=== PATIENT | female | born 1930 | race Caucasian/White ===

== ENCOUNTER 2017-01-16 11:53 | Emergency (ER) | payer MEDICARE, BC, OTHER ==
[~2017-01-16] VITALS: Ht 152.4 cm; Wt 50.9 kg
[~2017-01-16 11:53] MED LIST: ACLOVATE OINT 015 G1 TP; ASPI325T6 PO; ASPIRIN 32325 MG/TAB PO; ASPIRIN 81M81 MG/TA2 PO; CALCIUM CITRAT200 MG PO; CARAFATE 1GM1 G PO; CLEOCIN HCL300 MG PO; GLUCOSAMINE & C1 CA1 PO; GLUCOSAMINE PO; IBUPROFEN 200200 MG PO; IRON325 MG PO; LEVAQUIN 750MG750 M1 PO; MOTRIN 200200 MG/TAB PO; MULTIPLE VITAMI1 TAB PO; MVI PO; NEXIUM 40MG40 MG PO; NIASPAN500 MG PO; PATADAY 2.5 ML2.5 ML OU; PREMARIN .3MG0.3 MG PO; PRILOSEC; SYNTHROID0.05 MG/TA PO; TAMBOCOR50 MG PO; TYLENOL 325MG325 MG PO; VICODIN 5/5001 UDTAB PO; VIT B12; VITAMIN B-1000 MCG/T PO; VITAMIN D3400 IU PO; [UNRECOGNIZED DRUG - OTHER] TP; aclovate; aclovate TOP; glucosamine; levoxyl
[2017-01-16 11:55] VITALS: TEMP 97.7
[2017-01-16] MEDS ORDERED: CLEOCIN HCL300 MG PO (12:31)
[2017-01-16] MEDS ORDERED: GLUCOSAMINE 1000 PO (12:33)
[2017-01-16 12:35] LABS: BASO % 0.6 % (0.0-2.0); EOS % 0.9 % (0-4.0); GRAN # 2.3 (1.4-6.5); GRAN % 49.3 % (42.2-75.2); LYMPH % 43.2 % (20.0-51.0); MEAN CELL VOLUME 84 fl (80.0-100.0); MEAN CORPUSCULAR HGB CONC 30 g/dl (33.0-37.0); MONO # 0.3 (0.1-0.6); MONO % 5.8 % (1.7-9.3); PLATELET COUNT 157 K/mm3 (130-400); RED BLOOD COUNT 3.53 M/mm3 (4.10-5.30); REDCELL DISTRIBUTION WIDTH-CV 14.6 % (11.5-14.5); WHITE BLOOD COUNT 4.7 K/mm3 (4.8-10.8)
[2017-01-16 12:36] LABS: HEMATOCRIT 29.7 % (37.0-47.0); HEMOGLOBIN 8.9 g/dl (12.5-16.0); MEAN CORPUSCULAR HEMOGLOBIN 25 pg (27.0-31.0)
[2017-01-16] MEDS ORDERED: FLOVENT DI50 MCG/Act IH (12:36)
[2017-01-16 12:52] LABS: ADJUSTED CALCIUM 9.2 mg/dL (8.4-10.2); ALBUMIN 3.8 gm/dL (3.5-5.0); BILIRUBIN,TOTAL 0.4 mg/dL (0.0-1.0); CREATININE, serum 0.84 mg/dL (0.52-1.25); POTASSIUM 4.7 mmol/L (3.4-5.0); TOTAL PROTEIN 5.6 gm/dL (6.4-8.2)
[2017-01-16 13:32] LABS: PH 5 (5-8); SQUAMOUS EPITHELIAL 0-2 /hpf; URINE APPEARANCE Clear; URINE BACTERIA Rare /hpf; URINE BILIRUBIN Negative (NEGATIVE); URINE BLOOD 1+ (NEGATIVE); URINE COLOR Straw; URINE GLUCOSE Negative (NEGATIVE); URINE KETONE Negative (NEGATIVE); URINE RBC 0-2 /hpf; URINE UROBILINOGEN Negative (NEGATIVE); URINE WBC 0-2 /hpf
[2017-01-16 15:55] VITALS: BP 162/66; PULSE 71
== END 2017-01-16 15:00 | disposition home or self-care (01) ==
LOC: COL.ER 11:53
PROVIDERS: Emergency Medicine
DX: E87.1 Hypo-osmolality and hyponatremia (principal); D64.9 Anemia, unspecified; L03.116 Cellulitis of left lower limb; I48.91 Unspecified atrial fibrillation; I10 Essential (primary) hypertension; Z85.72 Personal history of non-Hodgkin lymphomas
CPT/HCPCS: J7030

== ENCOUNTER 2018-06-30 07:50 | Emergency (ER) | payer MEDICARE, BC, OTHER ==
[~2018-06-30] VITALS: Ht 152.4 cm; Wt 49.1 kg
[~2018-06-30 07:50] MED LIST changes: +FLOVENT DI50 MCG/Act IH; +GLUCOSAMINE 1000 PO
[2018-06-30 08:00] VITALS: TEMP 98.4
[2018-06-30 08:06] LABS: HEMATOCRIT 45.3 % (37.0-47.0); HEMOGLOBIN 15.1 g/dl (12.5-16.0); MEAN CELL VOLUME 96 fl (80.0-100.0); MEAN CORPUSCULAR HEMOGLOBIN 32 pg (27.0-31.0); MEAN CORPUSCULAR HGB CONC 33 g/dl (33.0-37.0); MEAN PLATELET VOLUME 10.6 fl (7.4-10.4); PLATELET COUNT 104 K/mm3 (130-400); RED BLOOD COUNT 4.71 M/mm3 (4.10-5.30); REDCELL DISTRIBUTION WIDTH-CV 13.4 % (11.5-14.5)
[2018-06-30 08:14] LABS: PROTHROMBIN TIME 10.8 SECONDS (9.7-12.8)
[2018-06-30 08:16] LABS: ALANINE AMINOTRANSFERASE 36 U/L (9-52); ALBUMIN 4.3 gm/dL (3.5-5.0); ALKALINE PHOSPHATASE 85 U/L (50-136); ANION GAP 5 mmol/L (7-16); AST,SGOT 32 U/L (15-37); BILIRUBIN,TOTAL 0.8 mg/dL (0.0-1.0); BLOOD UREA NITROGEN 19 mg/dL (7-17); CALCIUM 9.6 mg/dL (8.4-10.2); CARBON DIOXIDE 28 mmol/L (22-30); CHLORIDE 105 mmol/L (98-107); CREATININE, serum 0.73 mg/dL (0.52-1.25); GLUCOSE 88 mg/dL (74-106); POTASSIUM 4.3 mmol/L (3.4-5.0); SODIUM 138 mmol/L (137-145); TOTAL PROTEIN 6.2 gm/dL (6.4-8.2)
[2018-06-30 08:17] LABS: PARTIAL THROMBOPLASTIN TIME 32.3 SECONDS (26.0-37.0)
[2018-06-30 08:28] LABS: TROPONIN-I < 0.012 ng/mL (0.000-0.034)
[2018-06-30 09:09] VITALS: BP 136/64; PULSE 68
[2018-06-30 09:18] LABS: BAND 2 % (0-10); NEUTROPHILS 29 % (42.0-75.2); PLATELET ESTIMATE DECREASED (NORMAL)
[2018-06-30 09:22] LABS: LYMPHOCYTE 69 % (20.0-51.0)
[2018-07-01 08:04] LABS: PATHOLOGY DIFF REVIEW OK +
== END 2018-06-30 09:10 | disposition home or self-care (01) ==
LOC: COL.ER 07:50
PROVIDERS: Family Medicine
DX: I48.92 Unspecified atrial flutter (principal); I10 Essential (primary) hypertension; I48.91 Unspecified atrial fibrillation; Z79.82 Long term (current) use of aspirin

== ENCOUNTER 2018-10-15 08:01 | Emergency (ER) | payer MEDICARE, BC, OTHER ==
[~2018-10-15] VITALS: Ht 152.4 cm; Wt 48.2 kg
[~2018-10-15 08:01] MED LIST changes: +CRANBERRY500 M3 PO; +FERRO-TIME325 MG PO; +FLONASE NASAL S16 GM NS; +FLOVENT 44MCG I13 GM IH; +MOTRIN 400400 MG/TAB PO; +MUCINEX 60600 MG/TA1 PO; +VANTIN 200200 MG/TAB PO; +VITAMIN D3400 I1 PO; -VITAMIN D3400 IU PO
[2018-10-15 08:04] VITALS: TEMP 98.2
[2018-10-15 08:23] LABS: HEMOGLOBIN 14.4 g/dl (12.5-16.0); MEAN CELL VOLUME 99 fl (80.0-100.0); MEAN CORPUSCULAR HEMOGLOBIN 32 pg (27.0-31.0); MEAN CORPUSCULAR HGB CONC 33 g/dl (33.0-37.0); MEAN PLATELET VOLUME 10.6 fl (7.4-10.4); PLATELET COUNT 109 K/mm3 (130-400); RED BLOOD COUNT 4.46 M/mm3 (4.10-5.30); REDCELL DISTRIBUTION WIDTH-CV 13.5 % (11.5-14.5)
[2018-10-15 08:37] LABS: ALBUMIN 4.1 gm/dL (3.5-5.0); BILIRUBIN,TOTAL 0.7 mg/dL (0.0-1.0); CALCIUM 9.8 mg/dL (8.4-10.2); CREATININE, serum 0.71 (0.52-1.25); POTASSIUM 4.1 mmol/L (3.4-5.0)
[2018-10-15 09:33] VITALS: BP 118/76; PULSE 67
[2018-10-15 10:45] LABS: LYMPHOCYTE 80 % (20.0-51.0); NEUTROPHILS 13 % (42.0-75.2); PLATELET ESTIMATE DECREASED (NORMAL)
== END 2018-10-15 09:35 | disposition home or self-care (01) ==
LOC: COL.ER 08:01
PROVIDERS: Emergency Medicine
DX: I48.91 Unspecified atrial fibrillation (principal); Z98.51 Tubal ligation status; Z90.710 Acquired absence of both cervix and uterus; Z90.49 Acquired absence of other specified parts of digestive tract; Z85.72 Personal history of non-Hodgkin lymphomas

== ENCOUNTER → 2018-10-18 | Outpatient (CLI) | payer MEDICARE, BC, OTHER | LOC: COL.RAD 14:00 | DX: C83.81 Other non-follicular lymphoma, lymph nodes of head, face, and neck (principal); I51.7 Cardiomegaly; R59.0 Localized enlarged lymph nodes; R16.1 Splenomegaly, not elsewhere classified; M41.85 Other forms of scoliosis, thoracolumbar region | CPT/HCPCS: Q9967 ==